=== PATIENT | female | born 1985 | race Caucasian/White ===

== ENCOUNTER 2018-01-13 00:01 | Emergency (ER) | payer SELFPAY ==
[~2018-01-13] VITALS: Ht 165.1 cm; Wt 89.8 kg
[2018-01-13 00:10] VITALS: BP_SYST 131
--- NOTE | 2018-01-13 00:10 | NUR ---
Patient to ER bed 6 to gown for evaluation. Side rails up.
--- NOTE | 2018-01-13 00:12 | NUR ---
Patient AOx4, ambulatory, presents to ER with complaint of lower back pain 11/29. Patient states she [place] 5 stairs [place] Patient states no head injury. No other symptoms or complaints at this time.
--- NOTE | 2018-01-13 00:20 | NUR ---
JEFF Mcneil at bedside for medical evaluation.
--- NOTE | 2018-01-13 00:51 | NUR ---
Pt went to radiology in stable condition.
--- NOTE | 2018-01-13 01:04 | NUR ---
Patient returned from radiology in stable condition.
[2018-01-13] MEDS ORDERED: KETOROLAC TROMETHAMINE 60 MG/2 ML VIAL IM ONE (03:45)
--- NOTE | 2018-01-13 04:08 | NUR ---
Medication was given, pt tolerated well. No adverse reaction, will continue to monitor.
[2018-01-13 04:20] VITALS: BP_SYST 124
--- NOTE | 2018-01-13 04:20 | NUR ---
Patient given written and verbal discharge instructions and verbalizes understanding. ER MD discussed with patient the results and treatment provided. Patient in stable condition. ID arm band removed. Rx of Flexeril given. Patient educated on pain management and to follow up with PMD. Pain Scale 2/10 tolerable to patient. Opportunity for questions provided and answered. Medication side effect fact sheet provided.
== END 2018-01-13 04:20 | disposition home or self-care (01) ==
LOC: SED 00:01
DX: S39.012A Strain of muscle, fascia and tendon of lower back, initial encounter (principal); S30.0XXA Contusion of lower back and pelvis, initial encounter; R03.0 Elevated blood-pressure reading, without diagnosis of hypertension; Z90.49 Acquired absence of other specified parts of digestive tract; W10.9XXA Fall (on) (from) unspecified stairs and steps, initial encounter; Y93.89 Activity, other specified; Y92.89 Other specified places as the place of occurrence of the external cause; Y99.8 Other external cause status
CPT/HCPCS: 72100; 81025; 96372; 99284; J1885; 99283

== ENCOUNTER 2022-02-22 16:40 | Emergency (ER) | payer OTHER ==
[~2022-02-22] VITALS: Ht 165.1 cm; Wt 88.5 kg
[2022-02-22 16:49] VITALS: BP_SYST 138
--- NOTE | 2022-02-22 16:53 | NUR ---
Patient to ER bed 08 to gown for evaluation. Side rails up.
--- NOTE | 2022-02-22 16:54 | NUR ---
Patient BIB by self, urinary burning x 2 days. Patient is AOx4, NAD, on RA, +ADLs. Hx UTI.
[2022-02-22] MEDS ORDERED: CIPR500T5 PO (17:14)
[2022-02-22] MEDS ORDERED: PHEN-727 PO (17:14)
[2022-02-22 17:19] VITALS: BP_SYST 121
--- NOTE | 2022-02-22 17:20 | NUR ---
Patient given written and verbal discharge instructions and verbalizes understanding. ER MD discussed with patient the results and treatment provided. Patient in stable condition. ID arm band removed. IV catheter removed intact and dressing applied, no active bleeding. Rx given. Patient educated on pain management and to follow up with PMD. Pain Scale 2/10 Opportunity for questions provided and answered. Medication side effect fact sheet provided.
== END 2022-02-22 17:20 | disposition home or self-care (01) ==
LOC: SED 16:40
DX: N39.0 Urinary tract infection, site not specified (principal); R30.0 Dysuria; M54.50 Low back pain, unspecified; Z79.899 Other long term (current) drug therapy
CPT/HCPCS: 81002; 81025; 99283

== ENCOUNTER 2022-10-02 22:08 | Emergency (ER) | payer OTHER ==
[~2022-10-02] VITALS: Ht 165.1 cm; Wt 86.6 kg
[~2022-10-02 22:08] MED LIST: CIPR500T5 PO; PHEN-727 PO
[2022-10-02 22:16] VITALS: BP_SYST 121
[2022-10-02] MEDS ORDERED: NACL 0.9% 1,000 ML IV ONE (23:15)
[2022-10-02] MEDS ORDERED: KETOROLAC TROMETHAMINE 15 MG VIAL IVP ONE (23:15)
[2022-10-02] MEDS ORDERED: ONDANSETRON HCL 4 MG/2 ML VIAL IVP ONE (23:15)
[2022-10-03 00:05] LABS: BASOPHILS % (AUTO) 0.2 % (0.0-2.0); EOSINOPHILS % (AUTO) 0.4 % (0.0-4.0); HEMATOCRIT 39.2 % (36-48); HEMOGLOBIN 13.6 g/dL (12.0-16.0); LYMPHOCYTES % (AUTO) 17.6 % (20.5-51.5); MEAN CORPUSCULAR HEMOGLOBIN 33 pg (27-31); MEAN CORPUSCULAR HGB CONC 35 % (32-36); MEAN CORPUSCULAR VOLUME 94 fL (79.0-98.0); MONOCYTES # (AUTO) 0.3 K/uL (0.0-1.0); MONOCYTES % (AUTO) 5.9 % (1.7-9.3); NEUTROPHILS # (AUTO) 4.2 K/uL (1.8-7.7); NEUTROPHILS % (AUTO) 75.9 % (40.0-70.0); PLATELET COUNT (AUTO) 208 K/uL (130-430); RED BLOOD CELL COUNT(AUTO) 4.17 MIL/uL (4.2-6.2); RED CELL DISTRIBUTION WIDTH 13.6 % (9.0-15.0); WHITE BLOOD COUNT (AUTO) 5.6 K/uL (4.8-10.8)
[2022-10-03 00:06] LABS: BILIRUBIN,URINE NEGATIVE (NEGATIVE); CLARITY/URINE SL CLOUDY (CLEAR); COLOR,URINE YELLOW (YELLOW); GLUCOSE,URINE NEGATIVE (NEGATIVE); KETONES,URINE NEGATIVE (NEGATIVE); LEUKOCYTE ESTERASE ,URINE 3+ (NEGATIVE); NITRITE, URINE NEGATIVE (NEGATIVE); PROTEIN URINE NEGATIVE (NEGATIVE)
[2022-10-03 00:18] LABS: BLOOD, URINE TRACE (NEGATIVE)
[2022-10-03 00:20] LABS: ALBUMIN 3.7 g/dL (3.4-4.8); CALCIUM 7.9 mg/dL (8.4-11.0); CREATININE 0.95 mg/dL (0.55-1.30); TOTAL BILIRUBIN 0.7 mg/dL (0.0-1.0)
[2022-10-03 00:21] LABS: BACTERIA,URINE MODERATE /HPF (None Seen); WBC,URINE 20-50 /HPF (0-3)
[2022-10-03] MEDS ORDERED: cefTRIAXone 1 GM in D5W 50 ML IV ONE (00:30)
[2022-10-03] MEDS ORDERED: cefTRIAXone 1 GM VIAL ONE (00:32)
[2022-10-03] MEDS ORDERED: POTASSIUM CHLORIDE 20 MEQ/PKT PACKET PO ONE (00:45)
[2022-10-03] MEDS ORDERED: ONDA-8 TL (00:55)
[2022-10-03] MEDS ORDERED: CEPH-548 PO (00:55)
[2022-10-03 01:38] VITALS: BP_SYST 109
== END 2022-10-03 02:03 | disposition home or self-care (01) ==
LOC: SED 22:08
DX: N39.0 Urinary tract infection, site not specified (principal); E87.6 Hypokalemia; R11.2 Nausea with vomiting, unspecified; R10.30 Lower abdominal pain, unspecified; Z79.899 Other long term (current) drug therapy
CPT/HCPCS: 99284; 96375; 96361; 80053; 81000; 83690; 85025; 87086; 36415; 81025; 96365; J1885; J2405; J7030; J0696